=== PATIENT | female | born 2005 | race Two or more races ===

== ENCOUNTER 2025-03-23 23:19 | Emergency (ER) | payer MEDICAID, SELFPAY ==
[2025-03-23 23:21] VITALS: BMI 23.8
[2025-03-23 23:29] VITALS: BP 106/68; PULSE 92; RESP 20; TEMP 36.9; O2SAT 97
--- NOTE | 2025-03-23 23:42 | XR_ITS ---
Examination: CT soft tissue neck, with intravenous contrast. 2-D coronal reconstructions. 2-D sagittal reconstructions. Date and time of exam :March 23 10002024, 0134 hrs. Indications: Dental work today followed by right jaw pain.. CTDI: vol (mGy):10.82. DLP: (mGycm):314. Technique: 1.25 mm axial sections of the neck of the obtained. Coronal and sagittal reconstructions have been obtained. Intravenous contrast administered 50 cc Isovue-370.. Low dose protocols were performed. One or more of the following dose reduction techniques were used; automated exposure control, adjustment of the mA and/or KV according to patient size, use of iterative reconstruction technique. Findings: Moderate soft tissue tonsillar prominence Prominent cervical lymphadenopathy, right carotid triangle lymph nodes measuring up to 27 mm, left carotid triangle lymph nodes measuring up to 16 mm Prominent submental lymph nodes The larynx appears normal Thyroid lobes exhibit symmetry Left maxillary molar dental caries axial image 34 Normal epiglottis. Impression: Left maxillary molar dental caries Significant cervical lymphadenopathy, differential would include non-Hodgkin's lymphoma, Hodgkin's disease, mononucleosis
[2025-03-24 00:16] LABS: Basophils # (Auto) 0.1 Thou/mm3 (0.0-0.2); Basophils % (Auto) 1 % (0-2.5); Eosinophils # (Auto) 0.0 Thou/mm3 (0.0-0.5); Eosinophils % (Auto) 0 % (0-10); Hematocrit 37.2 % (36.0-46.0); Hemoglobin 12.3 g/dL (12.0-16.0); Immature Granulocytes Auto 0.01 Thou/mm3 (0.00-0.00); Lymphocytes # (Auto) 3.4 Thou/mm3 (1.0-4.8); Lymphocytes % (Auto) 51 % (10-50); Mean Corpuscular HGB Conc 33.1 g/dl (31.0-37.0); Mean Corpuscular Hemoglobin 27.2 pg (25.0-35.0); Mean Corpuscular Volume 82 fL (80-100); Monocytes # (Auto) 0.4 Thou/mm3 (0.0-0.8); Monocytes % (Auto) 6 % (0-12); Neutrophils # (Auto) 2.8 Thou/mm3 (1.8-7.7); Neutrophils % (Auto) 42 % (37-80); Nucleated Red Blood Cell # 0.00 Thou/mm3 (0.00-0.00); Nucleated Red Blood Cell % 0 /100 WBC (0); Platelet Count 225 Thou/mm3 (140-440); RDW Standard Deviation 40.0 fL (36.4-46.3); Red Blood Count 4.52 Miln/mm3 (4.00-5.20); White Blood Count 6.7 Thou/mm3 (4.5-11.0)
[2025-03-24 00:21] VITALS: BP 110/72; PULSE 89; RESP 19; O2SAT 98
[2025-03-24 00:37] LABS: HCG,Qualitative Serum Negative
[2025-03-24 00:43] LABS: Alanine Aminotransferase 44 U/L (10-49); Albumin, Serum 4.1 gm/dL (3.5-5.0); Anion Gap 9 (7-16); Aspartate Amino Transferase 42 U/L (0-34); BUN/Creatinine Ratio 10 Ratio (12-20); Bilirubin,Total 0.8 mg/dL (0.3-1.2); Blood Urea Nitrogen 7 mg/dL (9-23); Calcium 9.6 mg/dL (8.3-10.6); Carbon Dioxide 27.9 mMol/L (20.0-31.0); Chloride 103 mMol/L (98-107); Creatinine (Component) 0.7 mg/dL (0.6-1.3); Estimated Creatinine Clearance 120.0 mL/min (>60); Glucose 89 mg/dL (74-106); Osmolality,Calculated 276 (275-295); Potassium 4.0 mMol/L (3.4-5.1); Sodium 140 mMol/L (136-145); Total Protein 7.1 gm/dL (5.7-8.2); eGFR > 60 See Note
[2025-03-24 00:44] LABS: Albumin/Globulin Ratio 1.4 (1.2-2.2); Alkaline Phosphatase 76 U/L (46-116); Calcium (Corrected) 9.6 mg/dL (8.5-10.1); Globulin 3.0 gm/dL (2.3-3.5)
[2025-03-24] MEDS: HYDROcodone/APAP 5/325 TABLET 1 TAB PO (00:45)
--- NOTE | 2025-03-24 02:45 | PRELIM_ITS ---
CT scan of the neck with intravenous contrast (axial sections with sagittal and coronal reformats) March 24, 2025 at 0134 hours Clinical History: Neck mass. Comparison: None. Findings: Diffuse thickening of the Waldeyer's ring. Extensive bilateral cervical lymphadenopathy, the largest in the right level measuring 2.6 x 2.4 cm. Partially imaged residual thymic tissue. The nasopharynx, hypopharynx, supraglottic and infraglottic larynx, vocal cords and upper trachea are unremarkable. The epiglottis and aryepiglottic folds appear unremarkable. No enhancing lesion or fluid collection is identified. The vessels of the neck are well opacified. No filling defect is seen. The superficial soft tissues of the neck are unremarkable. The osseous structures are unremarkable. Impression: No masses. Diffuse thickening of the Waldeyer's ring and extensive bilateral cervical lymphadenopathy, consider mononucleosis and lymphoma in the differential diagnosis. Report Electronically Signed By: Brice Sarmiento 03/24/2025 2:45:11 AM [EST]
[2025-03-24 04:23] LABS: Strep A Rapid Positive (Negative)
[2025-03-24] MEDS: cefTRIAXone/D5w 1gm IV premix 1 GM/50 ML BAG IV (04:59)
[2025-03-24] MEDS: DEXAMETHASONE SOD PHOS INJ 10 MG/ML VIAL IM (05:04)
--- NOTE | 2025-03-24 05:08 | EDNOTE_ITS ---
ED Neck Injury Pain RME/HPI General Stated Complaint: SWELLING TO R JAW SP DENTAL WORK TODAY Time Seen by Provider: 03/23/25 23:41 Arrival date/time: 03/23/25 23:19 This is a case of 19-year-old female with no medical history came with her father due to mass on the right anterior neck near the jaw today patient had a dental workup this morning and noted to have pain on the throat and both ear pain worsening of the pain now with 2 cm anterior neck mass that the patient decided to sought consult here in the emergency room patient denies any pain while swallowing no drooling of saliva patient can speak full sentences patient denies any fever or chills Limitations: no limitations Related Data Previous Rx's ?Medication ?Instructions ?Recorded acetaminophen 325 mg tablet 325 mg PO Q4H PRN pain #30 tabs 11/05/18 dextromethorphan 5 mg-guaifenesin 15 ml PO Q4H PRN cou gh #237 mL 11/05/18 50 mg/5 mL oral liquid (Robitussin Cough-Chest Congestion DM) ibuprofen 600 mg tablet 600 mg PO TID PRN pain #30 t abs 11/05/18 azithromycin 250 mg tablet See Rx Instructions PO .COM PLEX #6 07/24/20 tabs amoxicillin 875 mg-potassium 1 tab PO BID 10 days #20 tabs 03/24/25 clavulanate 125 mg tablet lidocaine HCl 2 % mucosal solution 10 ml PO .Q4 PRN so re throat #100 03/24/25 (Lidocaine Viscous) mL prednisone 20 mg tablet See Taper PO QDAY 5 days #5 tabs 03/24/25 Allergies Allergy/AdvReac Type Severity Reaction Status Date / Time No Known Allergies Allergy Verified 03/23/25 23:24 Review of Systems Review of Systems Systems Reviewed: All systems reviewed, normal except as documented Constitutional Constitutional: Reports system reviewed and no additional complaints, except as documented, Reports as per HPI, Denies chills, Denies fever(s) and Denies headache(s) ENT Ears, Nose, Mouth, and Throat: Reports system reviewed and no additional complaints, except as documented, Reports as per HPI, Denies abnormal hearing, Denies bleeding gums, Denies change in voice, Denies dental pain, Denies disequilibrium, Denies dizziness, Denies dry mouth, Denies dysphagia, Denies ear discharge, Reports otalgia, Denies epistaxis, Denies facial pain, Denies halitosis, Denies headache(s), Denies hearing loss, Denies hoarseness, Denies lip swelling, Denies mouth lesions, Denies mouth pain, Denies nasal congestion, Denies nasal discharge, Denies nasal obstruction, Denies nasal trauma, Reports neck mass, Denies neck pain, Denies nose pain, Denies odynophagia, Denies post nasal drip, Denies sinus pain, Denies sinus pressure, Reports sore throat, Denies throat swelling, Denies tinnitus, Denies tongue swelling and Denies vertigo Cardiovascular Cardiovascular: Reports system reviewed and no additional complaints, except as documented and Reports as per HPI Respiratory Respiratory: Reports system reviewed and no additional complaints, except as documented and Reports as per HPI Gastrointestinal Gastrointestinal: Reports system reviewed and no additional complaints, except as documented, Reports as per HPI, Denies dysphagia and Denies odynophagia Genitourinary Genitourinary: Reports system reviewed and no additional complaints, except as documented and Reports as per HPI Musculoskeletal Musculoskeletal: Reports system reviewed and no additional complaints, except as documented, Reports as per HPI and Denies neck pain Neurologic Neurologic: Reports system reviewed and no additional complaints, except as documented, Reports as per HPI, Denies abnormal hearing, Denies disequilibrium, Denies dizziness, Denies headache(s) and Denies vertigo Allergic/Immunologic Allergic/Immunologic: Denies lip swelling, Denies throat swelling and Denies tongue swelling Past Medical History Past Medical History CARDIAC: Negative Cardiac Disorders RESPIRATORY: Negative Asthma GENITOURINARY: Negative Renal Disease ENDOCRINE: Negative Diabetes Mellitus Type 2 HEMATOLOGIC: Negative Sickle Cell Disease Social History SMOKING STATUS: Never smoker ED Exam General Limitations: Present no limitations General appearance: Present alert, in no apparent distress and other (Patient is awake alert oriented not in distress nontoxic looking well-hydrated well- nourished) Head Head exam: Present atraumatic, normocephalic and normal inspection Eye Eye exam: Present normal appearance, PERRL and EOMI ENT ENT exam: Present normal exam, normal oropharynx, mucous membranes moist, TM's normal bilaterally, normal external ear exam and other (Noted tonsils swollen red with exudate on the right tonsils no muffled voice no hot potato voice Centor criteria1/4 no peritonsillar abscess no drooling of saliva no muffled voice no hot potato voice ear exam is normal nose exam is normal) Neck Neck exam: Present normal inspection, full ROM, trachea midline, tenderness and other (Noted 2 cm anterior neck mass movable tender to touch no redness mild swelling no cellulitis no abscess); Absent meningismus, lymphadenopathy or thyromegaly Chest Chest inspection: Present normal inspection and symmetric chest wall rise; Absent tenderness Respiratory Respiratory exam: Present normal lung sounds bilaterally; Absent respiratory distress, wheezes, stridor, accessory muscle use or prolonged expiratory phase Cardiovascular Cardiovascular exam: Present regular rate, normal rhythm and normal heart sounds; Absent bradycardia, tachycardia, irregular rhythm, systolic murmur or diastolic murmur Abdominal Exam Abdominal exam: Present soft; Absent distention, tenderness, guarding, rebound, normal bowel sounds, diminished bowel sounds, hyperactive bowel sounds, hypoactive bowel sounds or organomegaly Extremities Exam Extremities exam: Present normal inspection and full ROM Back Exam Back exam: Present normal inspection and full ROM Neurological Exam Neurological exam: Present alert, oriented X3, CN II-XII intact, normal gait and reflexes normal; Absent motor sensory deficit Psychiatric Psychiatric exam: Present normal affect and normal mood Skin Skin exam: Present warm, dry, intact and normal color Course Quality Measures none Orders Category Date Time Status CT Screening NOW Care 03/23/25 23:[address] soft tissue neck w con Stat Exams 03/23/25 23:42 Taken CBC Stat Lab 03/23/25 23:55 Completed CMP [Comprehensive Metabolic Panel] Stat Lab 03/23/25 23:55 Completed HCG,Qualitative Serum Stat Lab 03/23/25 23:55 Completed [place] Screen Stat Lab 03/24/25 04:20 Received Strep A Rapid Stat Lab 03/23/25 03:17 Completed Dexamethasone Inj [Decadron Inj] Med 03/24/25 04:37 Discontinued 10 mg IM X1 ONE HYDROcodone*/APAP 5/325 [Ramona 5/325] Med 03/24/25 00:39 Discontinued 1 tab PO X1 ONE Penicillin G IV- Peds [ Penicillin G IV - Peds] 1.2 mmu Med 03/24/25 04:36 Discontinued Syringe For IV Med- Peds [Syringe Iv Carrier- Peds] 1 ea IV X1 cefTRIAXone/D5w 1gm IV premix [Rocephin/D5w 1gm IV Med 03/24/25 04:54 Active premix] 1 gm in 50 ml IV X1 Vital Signs Vital signs: Vital Signs Temperature 98.4 F 03/23/25 23:29 Pulse Rate 92 03/23/25 23:29 Respiratory Rate 20 03/23/25 23:29 Blood Pressure 106/68 03/23/25 23:29 Pulse Oximetry (%) 97 03/23/25 23:29 Oxygen Delivery Method Room Air 03/23/25 23:29 Oxygen saturation is 97% in room Neck Pain MDM Narrative MDM Narrative:: This is a case of 19-year-old female with no medical history came with her father due to mass on the right anterior neck near the jaw today patient had a dental workup this morning and noted to have pain on the throat and both ear pain worsening of the pain now with 2 cm anterior neck mass that the patient decided to sought consult here in the emergency room patient denies any pain while swallowing no drooling of saliva patient can speak full sentences patient denies any fever or chills patient is awake alert oriented not in distress not toxic looking well-hydrated dental exam is normal patient noted to have tonsils red swelling with exudate on the right tonsils but no drooling of saliva no peritonsillar abscess patient can speak full sentences no muffled voice no hot potato voice Centor criteria is 1-/4 patient noted to have multiple tender neck mass on the right anterior no redness no abscess no cellulitis lungs sound is clear no crackles no rales no retraction no stridor the rest of the physical exam and neurological exam your exam is also normal blood test showed no leukocytosis but with elevated lymphocytes kidney and liver function is normal no electrolyte imbalance patient is positive for strep throat CT scan showed a bilateral lymphadenopathy cannot totally ruled out mononucleosis versus lymphoma still pending mononucleosis since the patient is positive for strep throat I decided to give ceftriaxone IM and was discharged with Augmentin and prednisone I have a long discussion with this patient regarding the results of the CT scan I discussed the results of the CT scan to Dr. Szymanski I was instructed to discharge the patient and the patient will follow-up with the ENT or general surgeon for possible fine-needle biopsy to rule out lymphoma and malignancy father is well-informed regarding the result of the CT scan and regarding the importance to see the ENT specialist and general surgeon for any recurrence persistent and worsening symptoms they were aware to return in the emergency room immediately or call 911 Patient was discharged with comfortable condition walking with stable gait. Patient verbalized no further complains explained diagnosis and answered patient question. Patient is comfortable with the proposed management plan including the need to follow up with his/her primary care physician and any specialist if applicable Discussed patient for any urgent condition or worsening sx, He/She ne eded to go to emergency room immediately or call 911. Patient acknowledge the responsibility to follow up as instructed and to monitor her/his symptoms. For any persistence of the symptoms for more than 3-5 days return precaution advised. Discussed the result of the test and was given printed discharge instruction Patient data External records reviewed:: [facility] previous records Clinical information provided by:: patient and family Social determinants that could affect healthcare access:: none Patient has the following chronic illnesses:: None How is presenting disease/condition affected by chronic disease/condition?: no chronic disease Evaluation data The following diagnostics were reviewed and interpreted by me:: lab results and radiology exam(s) Lab and/or radiology exams considered but not ordered:: Reviewed Interpretation Summary: Reviewed Medications / Prescriptions Medications or Prescriptions considered but not ordered:: Given Medication administrations:: Medication Administration History Ceftriaxone Sodium/Dextrose (Rocephin/D5w 1gm Iv Premix) 1 gm in 50 mls @ 100 mls/hr IV X1 ONE Stop: 03/24/25 05:23 Last Admin: 03/24/25 04:59 Dose: 100 mls/hr Documented By: RAUL Discontinued Medications Hydrocodone Bitart/Acetaminophen (Hydrocodone/Apap 5/325 Tablet) 1 tab PO X1 ONE Stop: 03/24/25 00:40 Last Admin: 03/24/25 00:45 Dose: 1 tab Documented By: RAUL Dexamethasone Sodium Phosphate (Dexamethasone Sod Phos Inj 10 Mg/Ml Vial) 10 mg IM X1 ONE Stop: 03/24/25 04:38 Last Admin: 03/24/25 05:04 Dose: 10 mg Documented By: RAUL Penicillin G Potassium 1.2 mmu (/ Device) 0 mls @ 0 mls/hr IV X1 ONE Stop: 03/24/25 04:37 Given Consultations Consultation(s) initiated? (list below): No Diagnosis Neck Differential Diagnosis: other (Lymphadenopathy neck mass lymphoma strep throat otitis media mononucleosis) Most likely diagnosis given after review of the tests above:: Strep throat lymphadenopathy neck mass Admission Indicated Admission indicated?: not indicated Explain why admission is indicated or not indicated:: Not indicated Admission Request Was there a request for admission?: No Admission Attestation Admission request attestation: Not indicated Disposition Plan Disposition Plan: Discharge Discharge Attestation Discharge Attestation: The patient and all family members were given an opportunity to ask questions and understood the discharge instructions. Discharge instructions specifically effects, indications for sooner follow up or return to the emergency department, and the expected course of current diagnosis. Patient condition: Stable Discharge Plan Plan Patient Disposition: HOME (Self Care) Patient condition on transfer: Stable Prescriptions/Referrals Prescriptions/Med Rec: New amoxicillin-pot clavulanate 875-125 mg tablet 1 tab PO BID 10 Days Qty: 20 0RF lidocaine HCl [Lidocaine Viscous] 2 % solution 10 ml PO .Q4 PRN (Reason: sore throat) Qty: 100 0RF prednisone 20 mg tablet See Taper PO QDAY 5 Days Qty: 5 0RF Taper: Prednisone Taper 20 mg DAILY for 2 Days and 0 Hour 10 mg DAILY for 2 Days and 0 Hour 5 mg DAILY for 7 Days and 0 Hour No Action azithromycin 250 mg tablet See Rx Instructions .ROUTE .COMPLEX Qty: 6 0RF Rx Instructions: take 500 mg today (day 1), then 250 mg for 4 days (days 2-5) ibuprofen 600 mg tablet 600 mg PO TID PRN (Reason: pain) Qty: 30 0RF acetaminophen 325 mg tablet 325 mg PO Q4H PRN (Reason: pain) Qty: 30 0RF Robitussin Cough-Chest [place] DM 5-50 mg/5 mL liquid 15 ml PO Q4H PRN (Reason: cough) Qty: 237 0RF Referrals: Atif Bee MD [Primary Care Provider] - In 1 week Problem List Clinical Impression: Streptococcal tonsillitis, Neck mass, Lymphadenopathy Patient/Caregiver Discharge Instructions Education Materials: Lymphadenopathy, ED Pharyngitis, Strep (Confirmed), ED Tonsillitis (Child) Additional Instructions: Follow-up with your primary care physician in 2 days for reevaluation and it is very important to be referred to ENT specialist or general surgeon for further e valuation and treatment of your neck mass or lymphadenopathy for possible fine- needle biopsy to rule out malignancy and lymphoma recurrence persistent worsening symptoms or any emergent concerns such as unable to swallow drooling of saliva severe pain mass is getting bigger return to the emergency room immediately or call 911 take your medication as directed finish the course of antibiotic warm saline gargle is advised Print Language: Kenyan Stand Alone Forms: Estelita Award Info., Patient Portal Info Letter PA/[employer]PER[employer] Supervising Physician PA/[employer]PER[employer] Supervising Physician: Dr. Szymanski
[2025-03-24 05:11] VITALS: BP 108/77; PULSE 80; RESP 19; TEMP 37; O2SAT 97
[2025-03-24 05:11] LABS: Mono Screen Negative (Negative)
== END 2025-03-24 05:35 | disposition home or self-care (01) ==
PROVIDERS: Nurse Practitioner Family; Emergency Provider Emergency Medicine; PCP Family Medicine
DX: J03.00 Acute streptococcal tonsillitis, unspecified (principal); R59.1 Generalized enlarged lymph nodes
CPT/HCPCS: 36415; 70491; 80053; 84703; 85025; 86308; 87651; 99283; A4649; J0696; J1100; Q9967; A9270